=== PATIENT | female | born 1940 | race Caucasian/White ===

== ENCOUNTER → 2017-05-21 | Day surgery (SDC) | payer MEDICARE, MEDICAID ==
[~2017-05-21] VITALS: Ht 157.5 cm; Wt 130.0 kg
[~2017-05-21] MED LIST: ACETAMINOPHEN 1000 MG/100 ML 100 ML IV ONE; ALLO300T2 PO; AMLO2.5T PO; ASPI-516 CHEW; ATOR20TA15 PO; BUPIVACAINE HCL PF 0.5% 30 ML VIAL ONE; CEPH-460 PO; CHLORHEXIDINE GLUCONATE 2 % 1 PACK (2 CLOTHS) TOPICAL PRN; FAMOTIDINE 20 MG/2 ML VIAL ONE; FURO40TA PO; HYDR-3288 PO; LACTATED RINGER'S 1000 ML IV PRN; LIDOCAINE HCL 2% 50 ML VIAL ONE; METOPROLOL TARTRATE 25 MG TAB PO PRN; NEOMYCIN/POLYMYXIN 1 ML G.U. IRRIGANT ONE; POTA-163 PO; POVIDONE IODINE 5% (ANTISEPSIS KIT) 4 APPLICATIONS EACH NARE PRN; SODIUM CHLORID 0.9% 500 ML IV PRN; TRIAMCINOLONE ACETONIDE 40 MG/ML VIAL ONE; ceFAZolin 1,000 MG/NS 100 ML IV SCH
[2017-05-21 12:00] VITALS: PULSE 68
[2017-05-21 12:30] VITALS: TEMP 97.6
--- NOTE | 2017-05-21 12:43 | MP ---
cc: HARJIT HARRIS III, M.D. DATE OF SURGERY 05/21/2017 PREOPERATIVE DIAGNOSIS 1. Left carpal tunnel syndrome. 2. Left middle finger trigger finger. 3. Right middle finger trigger finger. PROCEDURE 1. Left open carpal tunnel release. 2. Left third A1 pascual release. 3. Right third A1 pascual steroid injection. SURGEON Harjit Harris III, MD PROCEDURE The patient was brought to the operating room, placed supine on the operating room table. After the correct site and side of surgery were verified by members of each team in the room multiple times including the patient and myself and after preoperative time-out and preoperative written consent was verified by everyone and after adequate sedation had been achieved, the left upper extremity was prepped and draped in the traditional sterile surgical fashion. A 50/50 mixture of 2% plain lidocaine and 0.5% plain Marcaine was used to infiltrate the skin and subcutaneous tissues in the areas of the planned incisions. The limb was exsanguinated with an Andrey wrap. A highly placed well-padded axillary tourniquet was inflated to 200 mmHg for a total of 13-minutes. A longitudinally oriented incision at the base of the palm was made and carried down through skin and subcutaneous tissue. Blunt dissection was performed. The transverse carpal ligament was identified and transected in its midline from its proximal most to its distal-most extent completely freeing the carpal tunnel contents. They were found to be slightly pale with a moderately hypertrophic tenosynovium and under some obvious compression, but were otherwise intact. There were no other anatomic abnormalities identified. No other causes of mass effect. Thorough irrigation with saline was performed. The skin edges were reapproximated using running 4-0 nylon sutures. An incision was then made in the distal palmar flexion crease overlying the third ray and blunt dissection was performed. The A1 pascual was identified and divided in its midline sharply completely releasing the flexor tendons which were found to have significant build up of tenosynovium deep, but were otherwise completely intact and noncompromised. Exploration proximally did not reveal any crossing bands of tissue or any other site of infection. A thorough irrigation was performed with saline. The skin edges were reapproximated using running and interrupted 4-0 nylon sutures. The hand arm were thoroughly cleansed and dried. Betadine Adaptic dressings applied on top of the wound followed by the usual circumferential sterile dressing. The axillary tourniquet had been released prior to the placement of the dressing and the hand and all fingers became immediately soft, pink and warm and had brisk capillary refill of less than two seconds. Attention was then paid to the right hand where the right third A1 pascual was sterilely injected in the usual fashion with a 2:1 mixture of 2% plain lidocaine and Kenalog 40 mg/mL for a total of 1.5 mL injectate into the A1 pascual. Pressure was Carmen and a sterile pressure dressing was applied. The patient was awakened from anesthesia and transported to the Post Anesthesia Care Unit awake and in stable condition. Sponge, needle insert counts were correct at the end of the case as reported by the nurses in the room. MD JEFF Sapp III/MORENA /12:04 PM /12:23 PM
[2017-05-21 13:30] VITALS: BP 128/54; PULSE 56; RESP 14; O2SAT 97
== END | disposition home or self-care (01) ==
LOC: PHSDC 08:19
PROVIDERS: ATTEND Orthopaedic Surgery Hand Surgery
DX: G56.02 Carpal tunnel syndrome, left upper limb (principal); M65.332 Trigger finger, left middle finger; M65.331 Trigger finger, right middle finger
CPT/HCPCS: 01810; 01991; 20551; 26055; 64721; J0131; J0690; J3010; J3301; J7120